=== PATIENT | female | born 1930 | race Caucasian/White ===

== ENCOUNTER 2019-08-17 16:53 | Emergency (ER) | payer OTHER ==
[~2019-08-17] VITALS: Ht 152.4 cm; Wt 77.1 kg
[~2019-08-17 16:53] MED LIST: COZAAR 50 MG TA50 M1 PO; FUROSEMIDE 40 M40 M1 PO; MECLIZINE HCL12.5 MG PO; SILVADENE20 GM TP
[2019-08-17 17:32] LABS: ABSOLUTE NEUTROPHILS 5.7 thou/uL (1.4-8.2); BASOPHILS 1.2 % (0.0-2.0); EOSINOPHILS 1.8 % (0.0-3.0); HEMATOCRIT 40.6 % (37.0-47.0); HEMOGLOBIN 13.2 gm/dL (12.0-15.0); LYMPHOCYTES 14.9 % (24.0-44.0); MCH 28.1 pg (26.0-34.0); MCHC 32.5 g/dL (28.0-37.0); MCV 86.5 fL (80.0-100.0); MONOCYTES 7.4 % (1.0-8.0); PLATELET COUNT 208 thou/uL (150-400); POLYS 74.7 % (36.0-66.0); RDW 14.1 % (10.5-14.5); WBC 7.7 thou/uL (4.0-11.0)
[2019-08-17 17:43] LABS: ANION GAP 8 mmol/L (7-16); BUN 27 mg/dL (7-18); CALCIUM 9.1 mg/dL (8.5-10.1); CHLORIDE 101 mmol/L (98-107); CO2 29 mmol/L (21-32); CREATININE 0.9 mg/dL (0.6-1.0); GLUCOSE 114 mg/dL (74-106); POTASSIUM 3.9 mmol/L (3.5-5.1); SODIUM 138 mmol/L (136-145)
[2019-08-17 17:53] LABS: ALBUMIN 3.6 g/dL (3.4-5.0); SGOT 21 U/L (15-37); SGPT 19 U/L (30-65); TOTAL BILIRUBIN 0.7 mg/dL (<0.1-1.0); TOTAL PROTEIN 6.6 g/dL (6.4-8.2); TROPONIN-I <0.06 ng/mL (<0.06)
[2019-08-17] MEDS ORDERED: MECLIZINE HCL25 M1 PO (20:41)
[2019-08-17 22:02] VITALS: BP 155/65
--- NOTE | 2019-08-18 08:17 | EKG ---
[place] [address] [address] [facility] [place] [address] ELECTROCARDIOGRAM REPORT Name: GOPI ALAS Room #: [facility] [id number] Admission: 08/17/19 Attend Phys: Discharge: 08/17/19 Date of : [birth year] Report #: [id number] THIS REPORT FOR: //name// [facility] ED Test Date: 2019-08-17 Test Time: 17:48:37 Pat Name: GOPI ALAS Department: Room: Gender: F Community Health Educator: [facility] : 1930 Requested By: Taras Escalante Order Number: [id number] MD: Neri Waterman Measurements Intervals [place] Rate: 68 P: 96 IN: 284 QRS: -30 QRSD: 168 T: 144 QT: 480 QTc: 511 Interpretive Statements Sinus rhythm Prolonged IN interval Left bundle branch block Compared to ECG 07/06/2013 17:52:49 Ventricular premature complex(es) no longer present Electronically Signed On 08-18-2019 8:17:14 CDT by Neri Waterman [email or web address] <ELECTRONICALLY SIGNED> By: Neri Waterman MD, [facility] 08/18/19 0817 [id number] Neri Waterman MD, [facility] /EPI
== END 2019-08-17 22:05 | disposition home or self-care (01) ==
LOC: ER 16:53
PROVIDERS: Physician Assistant
DX: S09.8XXA Other specified injuries of head, initial encounter (principal); R42 Dizziness and giddiness; Z88.5 Allergy status to narcotic agent; W01.190A Fall on same level from slipping, tripping and stumbling with subsequent striking against furniture, initial encounter; Y93.89 Activity, other specified; Y92.89 Other specified places as the place of occurrence of the external cause; Y99.8 Other external cause status